=== PATIENT | male | born 1990 | race Hispanic/Latino ===

== ENCOUNTER 2023-04-28 16:20 | Emergency (ER) | payer SELFPAY ==
[2023-04-28] VITALS (17 sets, daily range): BP systolic 117–143; BP diastolic 63–91; PULSE 71–99; RESP 14–30; TEMP 36.6; O2SAT 97–100
--- NOTE | ~2023-04-28 | CT_ITS ---
EXAMINATION: CT abdomen pelvis w con DATE: 04/28/2023 19:11 INDICATION: epigastric pain radiating into RUQ TECHNIQUE: Computed tomography (CT) of the abdomen and pelvis was performed with 100 mL Omnipaque-350 intravenous contrast. Automated exposure control and iterative reconstruction technique were employe d. The dose-length product was 419.94 mGy-cm. COMPARISON: None. FINDINGS: Lower thorax: Unremarkable Liver: Normal. Biliary/Gallbladder: Gallbladder is normal. No bile duct dilation. Pancreas: No mass or duct dilation. Spleen: Normal. Adrenals:No mass. Kidneys: No mass, stone, or hydronephrosis. GI tract: Mild distal esophageal and gastric wall edema. Fluid-filled colon. No small or large bowel dilation. Normal appendix. Mesentery/Peritoneum: No ascites, mass, or free air. Retroperitoneum: No mass. Pelvis: Pelvic organs are within normal limits. Soft Tissues: Soft tissues and body wall unremarkable. Bones: No acute osseous finding. IMPRESSION: Mild esophagitis/gastritis. Fluid-filled colon, which can be seen with diarrheal illness. Reviewed, dictated and finalized at location K.
--- NOTE | 2023-04-28 16:25 | ECG_ITS ---
Measurements Intervals [place] Rate: 69 P: 49 LA: 151 QRS: -29 QRSD: 105 T: 30 QT: 385 QTc: 415 Interpretive Statements SINUS RHYTHM BORDERLINE LEFT AXIS DEVIATION [QRS AXIS < -20] BORDERLINE ECG NO PREVIOUS ECG AVAILABLE FOR COMPARISON Electronically Signed On 04-29-2023 9:16:25 CDT by Baljinder Beard M.D.
[2023-04-28 16:59] LABS: Basophils Percent Auto 0.4 % (0.2-1.2); Eosinophils Percent Auto 0.2 % (0-4.4); Hematocrit 48.2 % (42.0-52.0); Immature Granulocyte Absolute 0.01 K/mm3 (0.00-0.031); Immature Granulocyte Percent A 0.2 % (0-0.5); Lymphocytes Absolute Auto 0.84 K/mm3 (0.9-3.2); Lymphocytes Percent Auto 17.1 % (18.3-44.2); Mean Corpuscular HGB Conc 35.3 g/dl (32-36); Mean Corpuscular Hemoglobin 32.3 pg (26-34); Mean Corpuscular Volume 91.6 fl (80-100); Mean Platelet Volume 9.6 fl (7.4-10.4); Monocytes Absolute Auto 0.2 K/mm3 (0.1-0.6); Monocytes Percent Auto 4.5 % (2.6-8.5); Neutrophils Absolute Auto 3.8 K/mm3 (1.3-6.7); Neutrophils Percent Auto 77.6 % (45.5-73.1); Platelet Count Result 225 k/mm3 (150-375); Red Blood Count 5.26 M/mm3 (4.6-6.20); Red Cell Distribution Width 11.6 % (11.5-14.5); White Blood Count 4.9 K/mm3 (4.5-10.0)
[2023-04-28 17:09] LABS: Alanine Aminotransferase 50 U/L (6-50); Albumin Level 4.9 g/dL (3.5-5.1); Alkaline Phosphatase 96 U/L (38-126); Anion Gap 11 mmol/L (8-16); Aspartate Amino Transferase 46 U/L (17-59); Bilirubin,Total 0.6 mg/dL (0.2-1.3); Blood Urea Nitrogen 14 mg/dL (9-20); Calcium 9.7 mg/dL (8.4-10.2); Carbon Dioxide 24 mmol/L (22-30); Chloride 104 mmol/L (98-107); Estimated CRCL calculation 72 ml/min; Estimated Glomerular Filt Rate > 60; Glucose 128 mg/dL (65-110); Lipase 79 U/L (23-300); Potassium 3.8 mmol/L (3.4-5.0); Sodium 139 mmol/L (137-145)
--- NOTE | 2023-04-28 17:21 | ED.NAVMDI ---
HPI - Nausea/Vomiting/Diarrhea General Chief complaint: Nausea/Vomiting/Diarrhea Stated complaint: overheated Time Seen by Provider: 04/28/23 17:09 History of Present Illness HPI Narrative: Patient is a 32-year-old male presenting with vomiting and abdominal pain. Patient is [place]-speaking, history obtained via automotive parts interpreter. States that he has had upper abdominal pain for the last several hours associated with persistent nausea and several episodes of vomiting. States that he feels like he might have diarrhea. He denies chest pain, shortness of breath, fevers, dysuria, hematuria, flank pain. Related Data Allergies Allergy/AdvReac Type Severity Reaction Status Date / Time No Known Allergies Allergy Verified 04/28/23 18:01 Review of Systems Review of Systems: All systems reviewed & are unremarkable except as noted in HPI and below Exam Narrative: GENERAL: Well-appearing, well-nourished, and in no acute distress. HEAD: Normocephalic, atraumatic. EYES: PERRLA and EOMI. ENT: Nares clear, no rhinorrhea or epistaxis. Mucous membranes moist. NECK: Supple. CHEST: Clear to auscultation. No respiratory distress. HEART: Regular rate and rhythm ABDOMEN: Soft, + tender in epigastrium left upper quadrant, no guarding or rebound EXTREMITIES: Normal range of motion. No edema. SKIN: Warm, dry, no rash. NEURO: No focal deficits. Alert and oriented x3. PSYCH: Normal mood and affect. Course Vital Signs Vital signs: Vital Signs Temperature 97.9 F 04/28/23 16:18 Pulse Rate 72 04/28/23 16:18 Respiratory Rate 21 H 04/28/23 16:18 Blood Pressure 140/91 H 04/28/23 16:18 Pulse Oximetry 97 04/28/23 16:18 Oxygen Delivery Room Air 04/28/23 16:18 Temperature 97.9 F 04/28/23 16:18 Pulse Rate 98 04/28/23 21:54 Respiratory Rate 14 04/28/23 21:54 Blood Pressure 117/73 04/28/23 21:54 Pulse Oximetry 100 04/28/23 21:54 Oxygen Delivery Room Air 04/28/23 16:18 MDM - Nausea/Vomiting/Diarrhea MDM Narrative Medical decision making narrative: Patient is a 32-year-old male presenting with several hours of upper abdominal pain and nausea and vomiting. Vitals are stable. Exam remarkable for the above. Blood work is unremarkable. No leukocytosis. Renal function is normal. Lipase is normal. UA is not infected. CT abdomen pelvis shows gastritis as well as a diarrheal state. On reevaluation, the patient states that he feels much better. He is asking for water. States that he is no longer nauseated. Discussed the reassuring work-up. We will send in for a few weeks of Pepcid. Advise that he follow-up closely with PCP. Appropriate return precautions given. Patient voiced understanding and is agreeable with plan. Discharged in stable condition. Differential Diagnosis Differential diagnosis: Likely food poisoning, gastroenteritis, dehydration and other (Pancreatitis) Medical Records Attestation: I reviewed the patient's medical records. Lab Data Attestation: I reviewed the patient's lab results. 04/28/23 16:53 04/28/23 16:53 Labs: Lab Results 04/28/23 04/28/23 Range/Units 16:53 18:54 WBC 4.9 (4.5-10.0) K/mm3 RBC 5.26 (4.6-6.20) M/mm3 Hgb 17.0 (14.0-18.0) g/dL Hct 48.2 (42.0-52.0) % MCV 91.6 (80-100) fl MCH 32.3 (26-34) pg MCHC 35.3 (32-36) g/dl RDW 11.6 (11.5-14.5) % Plt Count 225 (150-375) k/mm3 MPV 9.6 (7.4-10.4) fl Immature Gran % (Auto) 0.2 (0-0.5) % Neut % (Auto) 77.6 H (45.5-73.1) % Lymph % (Auto) 17.1 L (18.3-44.2) % A[place] % (Auto) 4.5 (2.6-8.5) % Eos % (Auto) 0.2 (0-4.4) % Baso % (Auto) 0.4 (0.2-1.2) % Lymph # (Auto) 0.84 L (0.9-3.2) K/mm3 Avery # (Auto) 0.2 (0.1-0.6) K/mm3 Eos # (Auto) 0.0 (0-0.3) K/mm3 Baso # (Auto) 0.0 (0.0-0.1) K/mm3 Abs Immat Gran (auto) 0.01 (0.00-0.031) K/mm3 Absolute Neuts (auto) 3.8 (1.3-6.7) K/mm3 Absolute Nucleated RBC 0.0 (0.0-0.012)
[2023-04-28] MEDS: ONDANSETRON INJ 4 MG/2 ML VIAL IV PUSH (17:36)
[2023-04-28] MEDS: FAMOTIDINE 20 MG/2 ML VIAL IV PUSH (17:39)
[2023-04-28] MEDS: KETOROLAC 15 MG/ML VIAL (*BKC) IV PUSH (17:39)
[2023-04-28] MEDS: LACTATED RINGERS 1,000 ML 999 ML IV CONT (17:40)
[2023-04-28] MEDS: Please add drug allergy info to patient profile. 1 EACH XX (18:00)
[2023-04-28 19:06] LABS: Appearance Urine Clear (Clear); Bilirubin Urine Negative (Negative); Blood Urine Negative (Negative); Color Urine Yellow (Yellow); Glucose Urine UA Negative (Negative); Ketones Urine 2+ mg/dL (Negative); Leukocyte Esterase Ur Negative LEU/UL (Negative); Nitrate Urine Negative (Negative); Protein Urine Negative (Negative); Specific Grav Ur 1.013 (1.001-1.035); Urobilinogen Urine 0.2 mg/dL (<2.0); pH Urine 5.5 (5.0-9.0)
[2023-04-28 19:08] LABS: Add Urine Microscopic? NO
== END 2023-04-28 22:06 | disposition home or self-care (01) ==
PROVIDERS: Emergency Medicine; Emergency Provider Emergency Medicine
DX: K52.9 Noninfective gastroenteritis and colitis, unspecified (principal); R94.31 Abnormal electrocardiogram [ECG] [EKG]
CPT/HCPCS: 36415; 74177; 80053; 81003; 83690; 85025; 93005; 96361; 96374; 96375; 99284; J1885; J2405; J7120; Q9967